=== PATIENT | male | born 1985 | race Caucasian/White ===

== ENCOUNTER 2023-02-19 10:33 | Emergency (ER) | payer OTHER, BC, SELFPAY ==
[2023-02-19 10:42] VITALS: BP 140/82; PULSE 74; RESP 18; TEMP 36.2; O2SAT 97; BMI 25.1
--- NOTE | 2023-02-19 11:13 | ED_ITS ---
HPI - Back Pain/Injury General Chief Complaint: Back Injury/Pain Stated Complaint: Upper back/shoulder blade pain Time Seen by Provider: 02/19/23 10:57 History of Present Illness HPI Narrative: This 37-year-old male comes in reporting pain just right of midline in his upper back between the scapula. He has had this pain for about a week. 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 He states that he was lifting some plywood yesterday and his pain is worse. He states that he had trouble sleeping last night and that he missed work today and will need a note for work. He did not have any fall or other significant mechanism of injury. He does have a history of surgery to his back in the midthoracic region from a fall that occurred several years ago. Related Data Home Medications Medication Instructions Recorded Confirmed paroxetine HCl 20 mg tablet 20 mg PO BID 02/19/23 02/19/23 Previous Rx's Medication Instructions Recorded cyclobenzaprine 10 mg tablet 10 mg PO TID #15 tabs 02/19/23 ketorolac 10 mg tablet 10 mg PO Q8H 5 days #15 tabs 02/19/23 methylprednisolone 4 mg tablets in See Rx Instructions PO .COMPLEX 02/19/23 a dose pack (Medrol (Alexys)) #21 ea Allergies Allergy/AdvReac Type Severity Reaction Status Date / Time No Known Drug Allergies Allergy Verified 02/19/23 10:41 Review of Systems Status of ROS: Reports: 10 or more systems reviewed and unremarkable except as noted in History and below Narrative: Constitutional: No fevers, no weight gain or loss. Eyes: No discharge. No vision changes. HENT: No congestion, no sore throat, no ear pain. Cardiovascular: No chest pain, no palpitations. Respiratory: No shortness of breath, no wheezes, no cough. Gastrointestinal: No abdominal pain, no vomiting, no diarrhea. Genitourinary: No dysuria, no hematuria. Musculoskeletal: Normal range of motion. Skin: No rashes, no pruritis. Neurological: No dizziness, weakness, speech change. He reports some tingling in his fingers in the morning at times and this dissipates soon after awakening. Endo/Heme/Allergies: No bruising or bleeding. No polydipsia. Pysch: no suicidality, no anxiety, no insomnia. All other systems reviewed and are negative. PFSH PFSH Social History service: No Exam Narrative: Exam Narrative: Constitutional: Well-developed, well-nourished, no acute distress. HEENT: Normocephalic, atraumatic. Neck: Normal range of motion. Nontender. Supple. Heart: Regular. No murmurs. Normal rate. Intact distal pulses. Lungs: Clear to auscultation. No chest discomfort. No wheezes, rhonchi, or rales. Abdomen: Normal bowel sounds. Nontender. No rebound tenderness. Genitalia: Deferred. Back: No midline tenderness. Normal range of motion. Tenderness in the rhomboid muscles on the right of the spine medial to the right scapula. Extremities: Normal range of motion. No injury. Skin: Intact. No rash. Warm. No erythema or pallor. Neurologic: No altered sensation. No weakness. Alert and oriented. Psychiatric: No suicidality. No anxiety or depression. No insomnia. Nursing notes and vitals signs are reviewed. Const: Vital Signs, click to edit/add: Vital Signs - 24 hr 02/19/23 10:42 Temperature 97.1 F L Pulse Rate [Right Pulse Oximeter] 74 Respiratory Rate 18 Blood Pressure [Ri ght Upper Arm] 140/82 H Pulse Oximetry 97 Oxygen Delivery Me thod Room Air Course Vital Signs Vital signs: Initial Vital Signs Temperature 97.1 F L 02/19/23 10:42 Temperature Source Temporal Artery Scan 02/19/23 10:42 Pulse Rate 74 02/19/23 10:42 Respiratory Rate 18 02/19/23 10:42 Blood Pressure 140/82 H 02/19/23 10:42 Blood Pressure Mean 101 02/19/23 10:42 Blood Pressure Position Sitting 02/19/23 10:42 Pulse Oximetry 97 02/19/23 10:42 Oxygen Delivery Method Room Air 02/19/23 10:42 Vital Signs Temperature 97.1 F L 02/19/23 10:42 Pulse Rate 74 02/19/23 10:42 Respiratory Rate 18 02/19/23 10:42 Blood Pressure 140/82 H 02/19/23 10:42 Pulse Oximetry 97 02/19/23 10:42 Oxygen Delivery Method Room Air 02/19/23 10:42 Temperature 97.1 F L 02/19/23 10:42 Pulse Rate 74 02/19/23 10:42 Respiratory Rate 18 02/19/23 10:42 Blood Pressure 140/82 H 02/19/23 10:42 Pulse Oximetry 97 02/19/23 10:42 Oxygen Delivery Method Room Air 02/19/23 10:42 MDM - Back Pain/Injury MDM Narrative Medical decision making narrative: This patient has muscle strain symptoms. There was no significant mechanism of injury that would mandate imaging at this time. He is okay to be discharged home. I did provide a return to work note and prescription for Toradol, Flexeril, and Medrol Dosepak. Discharge Plan Discharge Clinical Impression: Thoracic back pain Patient Disposition: Home, Self-Care Condition: Unchanged Additional Instructions: Take medication as prescribed. Increase activity as tolerated. Follow up with MD return if worsening. Prescriptions: New cyclobenzaprine 10 mg tablet 10 mg PO TID Qty: 15 0RF ketorolac 10 mg tablet 10 mg PO Q8H 5 Days Qty: 15 0RF methylprednisolone [Medrol (Alexys)] 4 mg tablets,dose pack See Rx Instructions .ROUTE .COMPLEX Qty: 21 0RF Rx Instructions: orally per package directions No Action paroxetine HCl 20 mg tablet 20 mg PO BID Follow Up/Referrals: Alberto Johnson MD [Primary Care Provider] - Stand Alone Forms: NavigatorMD Info Instructions
--- NOTE | 2023-02-20 18:16 | ED.NURSE ---
Pt called. Stated Derek'jade did not get his meds from his visit yesterday. Dr Anna resent rxs to manuel.
== END 2023-02-19 11:35 | disposition home or self-care (01) ==
PROVIDERS: Emergency Provider Emergency Medicine Emergency Medical Services
DX: M54.6 Pain in thoracic spine (principal)
CPT/HCPCS: 99283; 99284

== ENCOUNTER 2023-07-10 15:14 | Outpatient (CLI) | payer OTHER, SELFPAY ==
--- NOTE | 2023-07-10 15:30 | CRLHL7_ITS ---
For Patients: As a result of the Century Cures Act, medical imaging exams and procedure reports are released immediately into your electronic medical record. You may view this report before your referring provider. If you have questions, please contact your health care provider. Indication: Thoracic spine pain. Technique: Multiplanar, multisequence MRI of the thoracic spine was performed without the use of intravenous contrast. Comparison: None relevant available at the time of interpretation. Findings: The vertebral body heights are maintained without evidence of fracture. No marrow infiltrative process. Mild multilevel disc height loss and desiccation. No spondylolisthesis. Mildly exaggerated upper thoracic kyphosis. No abnormal cord signal. T5-6: Disc degeneration. Minimal disc bulge without spinal canal narrowing. Mild right neural foraminal narrowing. T11-12: Left paracentral disc protrusion abuts the left thoracic hemicord. Mild spinal canal narrowing. Mild spondylosis at the remaining thoracic levels, without overt evidence of spinal canal or neuroforaminal compromise. Impression: 1. At T11-12, left paracentral disc protrusion abuts the left thoracic hemicord. Mild spinal canal narrowing. 2. Milder spondylosis throughout the remaining thoracic levels. 3. No abnormal cord signal. Dictated by Juan M Cobb MD @ 07/10/2023 4:36:59 PM (Electronically Signed)
--- NOTE | 2023-07-16 17:46 | PC.NURSE ---
Pt called stating that his RX did not go through at [facility]. Called [facility] and verified they did not receive. RX called in per chart, ordered by Dr Gale today in clinic.
== END 2023-07-10 15:15 | disposition home or self-care (01) ==
PROVIDERS: PCP Internal Medicine; Visit Provider Internal Medicine
DX: M54.6 Pain in thoracic spine (principal); M51.24 Other intervertebral disc displacement, thoracic region; M47.894 Other spondylosis, thoracic region
CPT/HCPCS: 72146

== ENCOUNTER 2023-08-27 15:15 | Outpatient (CLI) | payer OTHER, SELFPAY ==
--- NOTE | 2023-08-27 15:30 | CRLHL7_ITS ---
For Patients: As a result of the Century Cures Act, medical imaging exams and procedure reports are released immediately into your electronic medical record. You may view this report before your referring provider. If you have questions, please contact your health care provider. INDICATION: Low back pain. Bilateral leg pain. TECHNIQUE: Multiplanar multisequence noncontrast MR images of the lumbar spine. COMPARISON: CT lumbar spine 01/06/2015. FINDINGS: Slight biconvex lumbar curvature. Lumbar lordosis is preserved. Vertebral heights maintained. No acute fracture or spondylolisthesis. No T1 hypointense lesions or marrow edema. Normal conus terminates at T12-L1. T12-L1: Mild disc degeneration and disc height loss. Circumferential disc bulge. No spinal canal or neural foraminal narrowing. L1-2: Shallow left eccentric disc bulge. No spinal canal or neural foraminal narrowing. L2-3: No spinal canal or neural foraminal narrowing. L3-4: No spinal canal or neural foraminal narrowing. L4-5: Mild disc degeneration. Shallow posterior disc bulge. No spinal canal narrowing. Mild bilateral neural foraminal narrowing. L5-S1: Mild disc degeneration. Shallow posterior disc bulge. No spinal canal or neural foraminal narrowing. IMPRESSION: 1. Mild multilevel lumbar spondylosis without spinal canal or neural foraminal stenosis. 2. Slight biconvex lumbar curvature. Dictated by Kulwant Mckeon MD @ 08/27/2023 11:17:40 PM (Electronically Signed)
== END 2023-08-27 15:16 | disposition home or self-care (01) ==
PROVIDERS: PCP Internal Medicine; Visit Provider Physician Assistant
DX: M54.16 Radiculopathy, lumbar region (principal); M47.896 Other spondylosis, lumbar region; M54.50 Low back pain, unspecified
CPT/HCPCS: 72148